=== PATIENT | male | born 1980 | race Caucasian/White ===

== ENCOUNTER 2019-08-23 21:42 | Observation (INO) | payer OTHER ==
[2019-08-23] MEDS ORDERED: ONDANSETRON 4 MG TAB.RAPDIS PO ONE (21:53)
--- NOTE | 2019-08-23 21:53 | ER Document Report ---
ED Medical Screen (RME) - General Chief Complaint: Abdominal Pain Stated Complaint: ABDOMINAL PAIN Time Seen by Provider: 08/23/19 21:50 Primary Care Provider: BRANDON WIGGINS [Primary Care Provider] - Follow up as needed Mode of Arrival: Ambulatory Information source: Patient Notes: 39-year-old male presented to ED for complaint of right lower quadrant abdominal pain. He stated it started some yesterday but got much worse this morning. He states he did have a fever earlier today and is been hot and cold sweat. He states he has been nauseated and vomited earlier. Patient is alert oriented respirations regular nonlabored speaking in full sentences. Patient states he quit smoking about a year ago and does not drink or use any illicit drugs. I have greeted and performed a rapid initial assessment of this patient. A comprehensive ED assessment and evaluation of the patient, analysis of test results and completion of medical decision making process will be conducted by an additional ED providers. Physical Exam - Vital signs Vitals: Temp Pulse Resp BP Pulse Ox 98.5 F 98 18 169/93 H 96 08/23/19 21:46 08/23/19 21:46 08/23/19 21:46 08/23/19 21:46 08/23/19 21:46 Course - Vital Signs Vital signs: Temp Pulse Resp BP Pulse Ox 98.5 F 98 18 169/93 H 96 08/23/19 21:46 08/23/19 21:46 08/23/19 21:46 08/23/19 21:46 08/23/19 21:46 Doctor's Discharge - Discharge Referrals: BRANDON WIGGINS [Primary Care Provider] - Follow up as needed
[2019-08-23 22:27] LABS: ABSOLUTE BASOPHILS # (AUTO) 0.1 10^3/uL (0.0-0.2); ABSOLUTE EOSINOPHILS # (AUTO) 0.2 10^3/uL (0.0-0.6); ABSOLUTE LYMPHOCYTES (AUTO) 1.3 10^3/uL (0.5-4.7); ABSOLUTE MONOCYTES (AUTO) 1.3 10^3/uL (0.1-1.4); ABSOLUTE NEUT (AUTO) 15.1 10^3/uL (1.7-8.2); BASOPHILS % (AUTO) 0.6 % (0-2); HEMATOCRIT 48.2 % (37.9-51.0); HEMOGLOBIN 16.2 g/dL (13.5-17.0); LYMPHOCYTES % (AUTO) 7.4 % (13-45); MEAN CORPUSCULAR HEMOGLOBIN 29.3 pg (27.0-33.4); MEAN CORPUSCULAR HGB CONC 33.7 g/dL (32.0-36.0); MEAN CORPUSCULAR VOLUME 87 fl (80-97); PLATELET COUNT 312 10^3/uL (150-450); RED BLOOD COUNT 5.53 10^6/uL (4.35-5.55); RED CELL DISTRIBUTION WIDTH 13.3 % (11.5-14.0); TOTAL CELLS COUNTED % (AUTO) 100 %
[2019-08-23 22:42] LABS: APPEARANCE,URINE TURBID; BILIRUBIN,URINE NEGATIVE (NEGATIVE); COLOR,URINE YELLOW; GLUCOSE, URINE NEGATIVE (NEGATIVE); KETONES,URINE NEGATIVE (NEGATIVE); PROTEIN,URINE NEGATIVE (NEGATIVE); URINE SPECIFIC GRAVITY 1.017; UROBILINOGEN,URINE NEGATIVE mg/dL (<2.0)
[2019-08-23 22:43] LABS: ALBUMIN 4.7 g/dL (3.5-5.0); ALKALINE PHOSPHATASE 92 U/L (38-126); ANION GAP 12 (5-19); ASPARTATE AMINO TRANSFERASE 19 U/L (17-59); BILIRUBIN,DIRECT 0.1 mg/dL (0.0-0.4); BILIRUBIN,TOTAL 0.5 mg/dL (0.2-1.3); BLOOD UREA NITROGEN 11 mg/dL (7-20); CALCIUM 10.2 mg/dL (8.4-10.2); CARBON DIOXIDE 25 mmol/L (22-30); CHLORIDE 105 mmol/L (98-107); GLUCOSE 132 mg/dL (75-110); POTASSIUM 4.3 mmol/L (3.6-5.0); TOTAL PROTEIN 7.9 g/dL (6.3-8.2)
[2019-08-23 22:46] LABS: BACTERIA,URINE 4+ /HPF
[2019-08-23] MEDS ORDERED: FENTANYL CITRATE INJ/PF 100 MCG/2 ML AMPUL IV ONE (23:20)
--- NOTE | 2019-08-23 23:24 | ER Document Report ---
ED General - General Chief Complaint: Abdominal Pain Stated Complaint: ABDOMINAL PAIN Time Seen by Provider: 08/23/19 21:50 Primary Care Provider: BRANDON WIGGINS [NO LOCAL MD] - Follow up as needed Mode of Arrival: Ambulatory - [facility] Notes: Patient is a 39-year-old male who presents emergency department for evaluation of abdominal pain. He states this started yesterday, and is gotten progressively worse. He has had nausea with one episode of nonbloody, nonbilious emesis. Normal bowel movements. He states his pain is sharp and stabbing, currently rates it a 9 out of 10. Nothing seems to make it better or worse. - Related Data Allergies/Adverse Reactions: No Known Allergies Allergy (Verified 08/23/19 23:51) Home Medications: None Past Medical History - General Information source: Patient - Social History Smoking Status: Former Smoker Drug Abuse: Marijuana - Vaping Family History: Reviewed & Not Pertinent Patient has suicidal ideation: No Patient has homicidal ideation: No Review of Systems - Review of Systems Constitutional: No symptoms reported EENT: No symptoms reported Cardiovascular: No symptoms reported Respiratory: No symptoms reported Gastrointestinal: See HPI Genitourinary: No symptoms reported Male Genitourinary: No symptoms reported Musculoskeletal: No symptoms reported Skin: No symptoms reported Neurological/Psychological: No symptoms reported Physical Exam - Vital signs Vitals: Temp Pulse Resp BP Pulse Ox 98.5 F 98 18 169/93 H 96 08/23/19 21:46 08/23/19 21:46 08/23/19 21:46 08/23/19 21:46 08/23/19 21:46 - Notes Notes: This is a 39-year-old male, appears stated age, in amount of moderate distress. Vital signs reviewed, please refer to chart. Head is normocephalic, atraumatic. Pupils equal round, reactive to light. Neck is supple without meningismus. Heart is regular rate and rhythm. Lungs are clear to auscultation bilaterally. Abdomen is soft, moderately tender in the right lower quadrant with some voluntary guarding, positive Rovsing's, normoactive bowel sounds throughout. Extremities without cyanosis, clubbing. Posterior calves are nontender. Peripheral pulses are equal. Skin is warm and dry. Patient is awake, alert, ne urological exam is nonfocal. Course - Re-evaluation Re-evalutation: 08/23/19 23:23 Patient presents emergency department for evaluation. He had initial laboratory investigations and Zofran as through triage. Laboratory investigations revealed a significant leukocytosis. Given this as well as his exam, I am concerned about the possibility of appendicitis. He has a BMI of 29 and a significant amount of intra-abdominal fat. I ordered an IV contrasted scan of the abdomen and pelvis, we will continue to monitor. 08/24/19 00:58 CT scan revealed acute appendicitis, I was notified by phone by Dr. Ferris head 0050 hours. I spoke with Dr. Sosa, he will take patient to the OR. - Vital Signs Vital signs: Temp Pulse Resp BP Pulse Ox 98.5 F 98 18 169/93 H 96 08/23/19 21:46 08/23/19 21:46 08/23/19 21:46 08/23/19 21:46 08/23/19 21:46 - Laboratory Result Diagrams: 08/23/19 22:00 08/23/19 22:00 Laboratory results interpreted by me: 08/23/19 08/23/19 22:00 22:00 WBC 18.0 H Lymph % (Auto) 7.4 L Absolute Neuts (auto) 15.1 H Seg Neutrophils % 84.0 H Glucose 132 H - Diagnostic Test Radiology reviewed: Reports reviewed Discharge - Discharge Clinical Impression: Acute appendicitis Condition: Stable Disposition: ADMITTED INPATIENT Admitting Provider: Surgicalist - Dr. Sosa Unit Admitted: OR Referrals: LOCALMD,NO [NO LOCAL MD] - Follow up as needed
--- NOTE | 2019-08-24 00:50 | RADIOLOGY REPORT (SQ) ---
EXAM DESCRIPTION: CT ABDOMEN PELVIS WITH IV CONTRAST COMPLETED DATE/TME: 08/23/2019 23:21 CLINICAL HISTORY: 39 years, Male, RLQ pain, eval appy COMPARISON: None. TECHNIQUE: 446 Images stored on PACS. All CT scanners at this facility use dose modulation, iterative reconstruction, and/or weight based dosing when appropriate to reduce radiation dose to as low as reasonably achievable (ALARA). [facility]: Dose Right [facility]: CareDose [facility]: Dose Right [facility]: Teradose 4D [facility]: Smart Figma LIMITATIONS: None. FINDINGS: Limited evaluation of the lung bases is unremarkable. Osseous structures are grossly intact. Fatty infiltrative change to the liver. Subcentimeter hepatic cyst. The spleen, adrenal glands, pancreas, kidneys are unremarkable. Gallbladder is present. No gross evidence for bowel obstruction. There is air within the appendix, however the appendix is also dilated and there is surrounding inflammatory change. Small appendicolith. Appendix measures 1.2 cm in diameter. Findings likely reflect acute appendicitis. No abscess, free air, or free fluid. IMPRESSION: While there is a small amount of air in the appendix, the appendix is also dilated and there is surrounding inflammation. Small appendicolith is suspected. Findings likely reflect acute appendicitis. TECHNICAL DOCUMENTATION: Quality ID # 436: Final reports with documentation of one or more dose reduction techniques (e.g., Automated exposure control, adjustment of the mA and/or kV according to patient size, use of iterative reconstruction technique) copyright 2010 [employer]- All Rights Reserved
[2019-08-24] MEDS ORDERED: MORPHINE SULFATE 10 MG/ML INJ IV ONE (01:13)
[2019-08-24] MEDS ORDERED: FENTANYL CITRATE INJ/PF 100 MCG/2 ML AMPUL ONE (01:35)
[2019-08-24] MEDS ORDERED: PROPOFOL INJ 200 MG/20 ML VIAL IV ONE (01:35)
[2019-08-24] MEDS ORDERED: MIDAZOLAM 2 MG/2 ML INJ ONE (01:35)
--- NOTE | 2019-08-24 01:35 | PDOC H&P ---
History of Present Illness Admission Date/PCP: 08/24/19 01:02 EST Patient complains of: Right-sided abdominal pain, nausea, vomiting History of Present Illness: JACKIE MOMIN is a 39 year old male with a 24-hour history of worsening right-sided abdominal pain, with subsequent nausea and vomiting. The patient denies any overt fevers or chills. His main complaint is severe abdominal pain. It is sharp and stabbing in the right lower quadrant. He reports that it is 10 out of 10. Palpation and movement make it worse. Nothing makes it better. The pain does not radiate. He has vomited several times, but he denies hematemesis. He denies any other significant medical problems. He denies chest pain, shortness of breath, headache, fevers, chills, fatigue, malaise, anorexia, dizziness, orthostasis, blurry vision. Past Surgical History Past Surgical History: Reports: Other - Spine surgery, neck fusion Social History Smoking Status: Former Smoker Hx Recreational Drug Use: No Drugs: None Hx Prescription Drug Abuse: No Family History Family History: Reviewed & Not Pertinent Parental Family History Reviewed: Yes Children Family History Reviewed: Yes Sibling(s) Family History Reviewed.: Yes Medication/Allergy Allergies/Adverse Reactions: No Known Allergies Allergy (Verified 08/23/19 23:51) Review of Systems Constitutional: ABSENT: anorexia, chills, fatigue Eyes: ABSENT: visual disturbances Ears: ABSENT: hearing changes Nose, Mouth, and Throat: ABSENT: sore throat Cardiovascular: ABSENT: chest pain Respiratory: ABSENT: cough, dyspnea Gastrointestinal: PRESENT: abdominal pain, nausea, vomiting. ABSENT: hematemesis, hematochezia, melena Musculoskeletal: ABSENT: back pain Integumentary: ABSENT: lesions, pruritus, rash Neurological: ABSENT: confusion, convulsions, dizziness, paresthesias Psychiatric: ABSENT: anxiety, depression Endocrine: ABSENT: cold intolerance, heat intolerance Hematologic/Lymphatic: ABSENT: easy bleeding, easy bruising Physical Exam Vital Signs: Temp Pulse Resp BP Pulse Ox 98.5 F 98 18 169/93 H 96 08/23/19 21:46 08/23/19 21:46 08/23/19 21:46 08/23/19 21:46 08/23/19 21:46 Intake & Output 11/01/19 11/02/19 11/03/19 06:59 06:59 05:59 Weight 102.8 kg General appearance: PRESENT: cooperative, mild distress - Abdominal pain Head exam: PRESENT: atraumatic, normocephalic Eye exam: PRESENT: EOMI, PERRLA. ABSENT: scleral icterus Mouth exam: PRESENT: moist, neck supple Neck exam: ABSENT: tenderness, thyromegaly, tracheal deviation Respiratory exam: PRESENT: clear to auscultation helio, unlabored. ABSENT: chest wall tenderness, tachypnea, wheezes Cardiovascular exam: PRESENT: RRR Pulses: PRESENT: normal radial pulses GI/Abdominal exam: PRESENT: guarding - Right lower quadrant, rebound, tenderness. ABSENT: distended Rectal exam: PRESENT: deferred Extremities exam: ABSENT: clubbing Musculoskeletal exam: ABSENT: deformity Neurological exam: PRESENT: alert, awake, oriented to person, oriented to place, oriented to time, oriented to situation, CN II-XII grossly intact. ABSENT: motor sensory deficit Psychiatric exam: ABSENT: agitated, anxious, depressed Focused psych exam: ABSENT: delusional Skin exam: ABSENT: cyanosis, erythema, jaundice Results Laboratory Results: 08/23/19 22:00 08/23/19 22:00 08/23/19 08/23/19 08/23/19 22:00 22:00 22:00 WBC 18.0 H RBC 5.53 Hgb 16.2 Hct 48.2 MCV 87 MCH 29.3 MCHC 33.7 RDW 13.3 Plt Count 312 Seg Neutrophils % 84.0 H Sodium 141.5 Potassium 4.3 Chloride 105 Carbon Dioxide 25 Anion Gap 12 BUN 11 Creatinine 0.83 Est GFR ( Amer) > 60 Glucose 132 H Calcium 10.2 Total Bilirubin 0.5 AST 19 Alkaline Phosphatase 92 Total Protein 7.9 Albumin 4.7 Lipase 64.9 Urine Color YELLOW Urine Appearance TURBID Urine pH 7.0 Ur Specific [place] 1.017 Urine Protein NEGATIVE Urine Glucose (UA) NEGATIVE Urine Ketones NEGATIVE Urine Blood NEGATIVE Ur Squamous Epith Cells 08/23/19 22:00 WBC RBC Hgb Hct MCV MCH MCHC RDW Plt Count Seg Neutrophils % Sodium Potassium Chloride Carbon Dioxide Anion Gap BUN Creatinine Est GFR ( Amer) Glucose Calcium Total Bilirubin AST Alkaline Phosphatase Total Protein Albumin Lipase Urine Color Urine Appearance Urine pH Ur Specific [place] Urine Protein Urine Glucose (UA) Urine Ketones Urine Blood Ur Squamous Epith Cells MANY Impressions: Abdomen/Pelvis CT 08/23/19 23:21 IMPRESSION: While there is a small amount of air in the appendix, the appendix is also dilated and there is surrounding inflammation. Small appendicolith is suspected. Findings likely reflect acute appendicitis. TECHNICAL DOCUMENTATION: Quality ID # 436: Final reports with documentation of one or more dose reduction techniques (e.g., Automated exposure control, adjustment of the mA and/or kV according to patient size, use of iterative reconstruction technique) copyright 2011 [employer]- All Rights Reserved Assessment & Plan - Diagnosis (1) Acute appendicitis Qualifiers: Acute appendicitis type: with localized peritonitis Appendicitis gangrene presence: unspecified whether gangrene present Appendicitis perforation presence: unspecified whether perforation present Appendicitis abscess presence: without abscess Qualified Code(s): K35.30 - Acute appendicitis with localized peritonitis, without perforation or gangrene Is this a current diagnosis for this admission?: Yes - Plan Summary Plan Summary: This is a 39-year-old male with 1 day history of right lower quadrant abdominal pain. He has a CT scan, physical exam, and laboratory work consistent with acute appendicitis. I recommended surgical intervention as definitive treatment. The patient has agreed to this. Risks/benefits discussed, informed consent obtained, and all questions answered. Start IV fluids. Start Zosyn. IV Dilaudid for pain.
[2019-08-24] MEDS ORDERED: BUPIVACAINE HCL 0.25 % INJ/PF (2.5 MG/1 ML) 30 ML VIAL ONE (01:44)
[2019-08-24] MEDS ORDERED: HYDROMORPHONE HCL INJ/PF 2 MG/ML AMPULE IV ONE (01:53)
[2019-08-24] MEDS ORDERED: RINGERS SOLUTION,LACTATED 1,000 ML IV PRN (01:54)
[2019-08-24] MEDS ORDERED: PIPERACILLIN/TAZOBACTAM 3.375 GM VIAL IV ONE (01:56)
[2019-08-24] MEDS ORDERED: ONDANSETRON HCL INJ/PF 4 MG/2 ML SDV IV PRN (03:47)
[2019-08-24] MEDS ORDERED: HYDROCODONE/ACETAMINOPHEN 10-325 MG TABLET PO PRN (03:53)
[2019-08-24] MEDS ORDERED: HYDROMORPHONE HCL INJ/PF 2 MG/ML AMPULE IV PRN (03:54)
[2019-08-24] MEDS ORDERED: KETOROLAC TROMETHAMINE INJ/PF 30 MG/1 ML SDV IV SCH (06:00)
--- NOTE | 2019-08-24 07:01 | Operative Report ---
Nonrecallable Operative Report DATE OF SURGERY: 08/24/19 PREOPERATIVE DIAGNOSIS: Acute appendicitis POSTOPERATIVE DIAGNOSIS: Acute appendicitis, nonperforated OPERATION: Laparoscopic appendectomy SURGEON: MARIAH JEAN ANESTHESIA: GA TISSUE REMOVED OR ALTERED: Appendix COMPLICATIONS: None apparent ESTIMATED BLOOD LOSS: Minimal PROCEDURE: Drains/implants: None. Procedure in detail: After informed consent was obtained, the patient was brought into the operating room and laid in the supine position. The area of the abdomen was prepped and draped in a normal sterile fashion. A supraumbilical incision was created with a 15 blade scalpel. Dissection was carried through the subcutaneous tissue using sharp dissection. The cicatrix was identified, grasped with a Anabella clamp, and retracted upwards. The linea alba fascia was incised sharply, the abdomen was entered sharply. The balloon trocar was inserted, and pneumoperitoneum was achieved. A suprapubic midline 5 mm trocar was then placed under direct laparoscopic visualization. Another left lower quadrant 5 mm trocar was placed in similar fashion. Atraumatic graspers were placed through the 5 mm ports. The appendix was easily identified. It was inflamed and injected. It was not perforated. The appendix was then retracted anteriorly and freed from the mesoappendix using the harmonic scalpel. 2 PDS Endoloops were used to secure the base of the appendix. Next the appendix was amputated using the harmonic scalpel. The appendix was placed into an Endo Catch bag and pulled out of the umbilicus. The camera was reinserted. The right lower quadrant was inspected. A small amount of blood was suctioned from the right lower quadrant. The 5 mm trochars removed under direct laparoscopic visualization. The supraumbilical trocar was removed, and pneumoperitoneum was relieved. The supraumbilical fascia was closed using 0 Vicryl suture in [id number] fashion. The overlying skin was closed using 4-0 Vicryl Rapide suture in subcuticular fashion. Dressings were placed, and the procedure was concluded. All sponge, instrument, needle counts were correct x2. Condition: Stable.
--- NOTE | 2019-08-24 08:53 | PDOC DISCHARGE SUMMARY ---
General - Admit/Disc Date/PCP Admission Date/Primary Care Provider: 08/24/19 01:02 EST Discharge Date: 08/24/19 - Discharge Diagnosis Final Diagnosis: Acute nonperforated appendicitis - Assessment Summary: This is a 39-year-old male presenting to the hospital with sharp, stabbing, severe right lower quadrant pain. He underwent work-up revealing a leukocytosis and a CT consistent with acute appendicitis. The patient was taken to the operating room for definitive surgical treatment. Laparoscopic appendectomy was performed. He was found to have nonperforated acute appendicitis. After it is appendix was removed, the patient was taken to the floor in stable condition. On the floor, the patient remained comfortable with no evidence of fever, tachycardia, or other significant finding. On postoperative day 0, he was ambulating, tolerating a diet, and it was felt that he had reached maximal hospital benefit. At this time the patient is medically fit for discharge. - Additional Information Resuscitation Status: Full Code Discharge Diet: As Tolerated Discharge Activity: No Lifting Over 10 Pounds, No Lifting/Push/Pulling Referrals: LOCALMD,NO [NO LOCAL MD] - Follow up as needed Home Medications: No Home Medications 08/24/19 Additional Information: Discharge home. Diet as tolerated. Activity: No lifting greater than 10 pounds x 2 weeks. Follow-up with me in 7 to 10 days at [facility]. Okay to shower on Sunday. No tub baths or swimming pools x2 weeks. History of Present Illiness History of Present Illness: 39-year-old male admitted for acute appendicitis. Physical Exam Vital Signs: Temp Pulse Resp BP Pulse Ox 98.3 F 63 16 103/45 L 94 08/24/19 08:29 08/24/19 08:29 08/24/19 08:29 08/24/19 08:29 08/24/19 08:29 Intake & Output 08/23/19 08/24/19 08/25/19 07:59 06:59 06:59 Intake Total Output Total Balance Weight Results Laboratory Results: WBC 18.0 10^3/uL (4.0-10.5) H 08/23/19 22:00 RBC 5.53 10^6/uL (4.35-5.55) 08/23/19 22:00 Hgb 16.2 g/dL (13.5-17.0) 08/23/19 22:00 Hct 48.2 % (37.9-51.0) 08/23/19 22:00 MCV 87 fl (80-97) 08/23/19 22:00 MCH 29.3 pg (27.0-33.4) 08/23/19 22:00 MCHC 33.7 g/dL (32.0-36.0) 08/23/19 22:00 RDW 13.3 % (11.5-14.0) 08/23/19 22:00 Plt Count 312 10^3/uL (150-450) 08/23/19 22:00 Lymph % (Auto) 7.4 % (13-45) L 08/23/19 22:00 [place] % (Auto) 7.0 % (3-13) 08/23/19 22:00 Eos % (Auto) 1.0 % (0-6) 08/23/19 22:00 Baso % (Auto) 0.6 % (0-2) 08/23/19 22:00 Absolute Neuts (auto) 15.1 10^3/uL (1.7-8.2) H 08/23/19 22:00 Absolute Lymphs (auto) 1.3 10^3/uL (0.5-4.7) 08/23/19 22:00 Absolute Monos (auto) 1.3 10^3/uL (0.1-1.4) 08/23/19 22:00 Absolute Eos (auto) 0.2 10^3/uL (0.0-0.6) 08/23/19 22:00 Absolute Basos (auto) 0.1 10^3/uL (0.0-0.2) 08/23/19 22:00 Seg Neutrophils % 84.0 % (42-78) H 08/23/19 22:00 Sodium 141.5 mmol/L (137-145) 08/23/19 22:00 Potassium 4.3 mmol/L (3.6-5.0) 08/23/19 22:00 Chloride 105 mmol/L (98-107) 08/23/19 22:00 Carbon Dioxide 25 mmol/L (22-30) 08/23/19 22:00 Anion Gap 12 (5-19) 08/23/19 22:00 BUN 11 mg/dL (7-20) 08/23/19 22:00 Creatinine 0.83 mg/dL (0.52-1.25) 08/23/19 22:00 Est GFR ( Amer) > 60 (>60) 08/23/19 22:00 Est GFR (MDRD) Non-Af > 60 (>60) 08/23/19 22:00 Glucose 132 mg/dL (75-110) H 08/23/19 22:00 Calcium 10.2 mg/dL (8.4-10.2) 08/23/19 22:00 Total Bilirubin 0.5 mg/dL (0.2-1.3) 08/23/19 22:00 Direct Bilirubin 0.1 mg/dL (0.0-0.4) 08/23/19 22:00 Neonat Total Bilirubin Not Reportable 08/23/19 22:00 Neonat Direct Bilirubin Not Reportable 08/23/19 22:00 Neonat Indirect Bili Not Reportable 08/23/19 22:00 AST 19 U/L (17-59) 08/23/19 22:00 ALT 21 U/L (<50) 08/23/19 22:00 Alkaline Phosphatase 92 U/L (38-126) 08/23/19 22:00 Total Protein 7.9 g/dL (6.3-8.2) 08/23/19 22:00 Albumin 4.7 g/dL (3.5-5.0) 08/23/19 22:00 Lipase 64.9 U/L (23-300) 08/23/19 22:00 Urine Color YELLOW 08/23/19 22:00 Urine Appearance TURBID 08/23/19 22:00 Urine pH 7.0 (5.0-9.0) 08/23/19 22:00 Ur Specific [place] 1.017 08/23/19 22:00 Urine Protein NEGATIVE mg/dL (NEGATIVE) 08/23/19 22:00 Urine Glucose (UA) NEGATIVE mg/dL (NEGATIVE) 08/23/19 22:00 Urine Ketones NEGATIVE mg/dL (NEGATIVE) 08/23/19 22:00 Urine Blood NEGATIVE (NEGATIVE) 08/23/19 22:00 Urine Nitrite (Reflex) NEGATIVE (NEGATIVE) 08/23/19 22:00 Urine Bilirubin NEGATIVE (NEGATIVE) 08/23/19 22:00 Urine Urobilinogen NEGATIVE mg/dL (<2.0) 08/23/19 22:00 Leukocyte Esterase Rfl NEGATIVE (NEGATIVE) 08/23/19 22:00 Urine RBC 1-5 /HPF 08/23/19 22:00 Urine WBC (Reflex) 1-5 /HPF 08/23/19 22:00 Ur Squamous Epith Cells MANY /HPF 08/23/19 22:00 Urine Bacteria 4+ /HPF 08/23/19 22:00 Urine Ascorbic Acid NEGATIVE (NEGATIVE) 08/23/19 22:00 Impressions: Abdomen/Pelvis CT 08/23/19 23:21 IMPRESSION: While there is a small amount of air in the appendix, the appendix is also dilated and there is surrounding inflammation. Small appendicolith is suspected. Findings likely reflect acute appendicitis. TECHNICAL DOCUMENTATION: Quality ID # 436: Final reports with documentation of one or more dose reduction techniques (e.g., Automated exposure control, adjustment of the mA and/or kV according to patient size, use of iterative reconstruction technique) copyright 2011 [employer]- All Rights Reserved
[2019-08-24] MEDS ORDERED: INFLUENZA QUAD (6MOS+) 2019-20 VAC 0.5 ML SYR IM ONE (09:15)
[2019-08-24 09:23] VITALS: BP 122/67
[2019-08-24] MEDS ORDERED: KETOROLAC TROMETHAMINE 60 MG/2 ML SDV ONE (09:25)
[2019-08-24] MEDS ORDERED: DEXAMETHASONE SOD PHOSPHATE INJ 4 MG/1 ML VIAL ONE (09:25)
[2019-08-24] MEDS ORDERED: NEOSTIGMINE METHYLSULFATE 10 MG/10 ML VIAL ONE (09:25)
[2019-08-24] MEDS ORDERED: ROCURONIUM BROMIDE INJ 50 MG/5 ML VIAL IV ONE (09:25)
[2019-08-24] MEDS ORDERED: GLYCOPYRROLATE 1 MG/5 ML VIAL ONE (09:25)
[2019-08-24] MEDS ORDERED: SUCCINYLCHOLINE CHLORIDE INJ 200 MG/10 ML VIAL ONE (09:25)
[2019-08-24] MEDS ORDERED: ONDANSETRON HCL INJ/PF 4 MG/2 ML SDV ONE (09:25)
[2019-08-24] MEDS ORDERED: FAMOTIDINE 20 MG TABLET PO SCH (10:00)
== END 2019-08-24 10:11 | disposition home or self-care (01) ==
LOC: ER 21:42 → INTOOBSV 08-24 01:02 → EH 08-24 01:02 → 4S 08-24 04:00
PROVIDERS: ATTEND Surgery
PROC: 3E02340 Introduction of Influenza Vaccine into Muscle, Percutaneous Approach (ICD-10-PCS; 2019-08-24)
PROC: 0DTJ4ZZ Resection of Appendix, Percutaneous Endoscopic Approach (ICD-10-PCS; principal; 2019-08-24 02:30)
DX: K35.80 Unspecified acute appendicitis (principal); F12.10 Cannabis abuse, uncomplicated; Z87.891 Personal history of nicotine dependence; Z23 Encounter for immunization
CPT/HCPCS: 44970; 99285; 96374; 36415; 83690; 85025; 80053; 81001; 88304 ×2; 74177; 90686; 00840; G0378; J2250; J3490 ×2; J1100; J1885 ×2; S0119; J3010 ×2; J2270; J2710; J1170; J0330; J2405; J7120; J2704; J2543; 840

== ENCOUNTER 2020-01-29 09:02 | Emergency (ER) | payer SELFPAY ==
--- NOTE | 2020-01-29 09:31 | ER Document Report ---
HPI - HPI Notes: The patient was evaluated during the global Covid 19 pandemic and that diagnosis was suspected/considered upon their initial presentation. Their evaluation, treatment and testing was consistent with current guidelines for patients who present with complaints or symptoms that may be related to Covid 19. Heart rate is 94. Blood pressure 124/74. SPO2 95% on room air not hypoxic. Temperature 98.0 degrees. Respiratory rate 18. 39-year-old male who is otherwise healthy presenting for evaluation of upper respiratory symptoms for 1 day. Body aches, dry cough, myalgia, no chest pain no shortness of breath denies abdominal pain nausea vomiting. Patient has not had recent travel. 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 Full physical exam could not be performed due to Covid 19 isolation protocols. Constitutional: Nontoxic appearance, no acute distress Eyes: Nonicteric, extraocular movements intact, sclera clear Cardiovascular: No JVD, regular rate and rhythm Respiratory: Nonlabored breathing, no use of accessory muscles, no tachypnea, lung sounds are clear to auscultation Gastrointestinal: Abdomen not distended Musculoskeletal: Moves all extremities well, normal gait Skin: Normal color Neuro: Awake alert oriented x3, normal speech Psych: Normal mood and affect Patient presents with upper respiratory symptoms worrisome for possible Covid 19 although he has not had a known exposure he does work in a warehouse area with multiple other individuals. Patient does not have emergency worrying symptoms such as difficulty breathing, shortness of breath, chest pain, pressure, confusion or cyanosis. Patient appears suitable for discharge as they are not of an advanced age, do not have any chronic medical conditions that are uncontrolled such as diabetes, CAD, immune deficiency, chronic lung disease or chronic kidney disease. Patient's vital signs are stable and patient is nontoxic in appearance. Good return precautions have been discussed with the patient and/or family members. Patient verbalized understanding and is agreeable with discharge plan of care at this time. Past Medical History - Social History Smoking Status: Unknown if Ever Smoked Family History: Reviewed & Not Pertinent Psychiatric Medical History: Denies: Hx Depression Past Surgical History: Reports: Other - Spine surgery, neck fusion Vertical Provider Document - INFECTION CONTROL TRAVEL OUTSIDE OF THE [place] IN LAST 30 DAYS: No Discharge - Discharge Clinical Impression: Upper respiratory infection, viral, Covid 19 Evaluation Condition: Stable Disposition: HOME, SELF-CARE Additional Instructions: Patient was provided with discharge information including: As a person under investigation for Covid 19, the [facility], division of public health advises you to adhere to the following guidance until your test results are reported to you. If your test result is positive, you will receive additional information from your provider in your local health department at that time. Remain at home until you are cleared by the health provider or public health authorities. Keep a log of visitors to your home, notify any visitors to your home with your isolation status. If you plan to move to a new address or leave the formerly [facility], notify the local health department in your County. Call your doctor or seek care if you have an urgent medical need. Before seeking medical care, call ahead to get instructions from the provider before arriving at the medical office clinic or hospital. Notify them that you are being tested for the virus that causes Covid 19 so that arrangements can be made as necessary to prevent transmission to others in the healthcare setting. Next, notify the local health department and your County. If you medical emergency arises and you need to call 911, inform the first responders that you are being tested for the virus that causes Covid 19. Next, notify the local health department and your County If you have worsening symptoms proceed to the emergency department for evaluation. Forms: Return to Work
[2020-01-29 10:44] LABS: A TYPE INFLUENZA AG NEGATIVE (NEGATIVE); B INFLUENZA AG NEGATIVE (NEGATIVE)
== END 2020-01-29 11:46 | disposition home or self-care (01) ==
LOC: ER 09:02 → EDRDC 11:46
DX: J06.9 Acute upper respiratory infection, unspecified (principal); M79.10 Myalgia, unspecified site; R05 Cough; R53.83 Other fatigue; H92.02 Otalgia, left ear; Z20.828 Contact with and (suspected) exposure to other viral communicable diseases
CPT/HCPCS: 87070; 87635; 87804; 87880; 99211